=== PATIENT | male | born 1975 | race Asian ===

== ENCOUNTER 2016-11-30 16:55 | Emergency (ER) | payer SELFPAY ==
[~2016-11-30] VITALS: Ht 175.3 cm; Wt 93.0 kg
--- NOTE | 2016-11-30 17:15 | NUR ---
Patient has been seen and evaluated by Jojo HOOKS.
[2016-11-30 17:18] VITALS: BP_SYST 128
[2016-11-30 17:40] LABS: BASOPHILS % (AUTO) 0.4 % (0.0-2.0); EOSINOPHILS # (AUTO) 0.2 K/uL (0.0-0.4); EOSINOPHILS % (AUTO) 2.4 % (0.0-4.0); HEMATOCRIT 52.7 % (36-54); LYMPHOCYTES # (AUTO) 1.6 K/uL (1.0-5.5); LYMPHOCYTES % (AUTO) 22.9 % (20.5-51.5); MEAN CORPUSCULAR HEMOGLOBIN 29 pg (27-31); MEAN CORPUSCULAR HGB CONC 32 % (32-36); MEAN CORPUSCULAR VOLUME 92 fL (79.0-98.0); MONOCYTES # (AUTO) 0.4 K/uL (0.0-1.0); MONOCYTES % (AUTO) 6.1 % (1.7-9.3); NEUTROPHILS % (AUTO) 68.2 % (40.0-70.0); PLATELET COUNT (AUTO) 281 K/uL (130-430); RED BLOOD CELL COUNT(AUTO) 5.76 MIL/uL (4.2-6.2); RED CELL DISTRIBUTION WIDTH 12.8 % (9.0-15.0); WHITE BLOOD COUNT (AUTO) 7.2 K/uL (4.8-10.8)
[2016-11-30 17:57] LABS: ALBUMIN 4.5 g/dL (3.4-4.8); CALCIUM 9.8 mg/dL (8.4-11.0); CREATININE 1.1 mg/dL (0.55-1.30); POTASSIUM 3.8 mmol/L (3.5-5.1); TOTAL BILIRUBIN 1.4 mg/dL (0.0-1.0); TOTAL PROTEIN, SERUM 8.6 g/dL (6.4-8.3); URIC ACID 9.9 mg/dL (2.4-7.0)
[2016-11-30] MEDS ORDERED: KETOROLAC TROMETHAMINE 60 MG/2 ML VIAL IM ONE (18:15)
--- NOTE | 2016-11-30 18:25 | NUR ---
Patient to ER for eval of left foot pain-patient to bed 7
--- NOTE | 2016-11-30 18:35 | NUR ---
Patient to ED for eval of left foot/plantar area pain. Patient reports acute onset, no reported trauma or injury. Patient with difficulty ambulating due to pain, patient has been seen and evaluated by Jojo HOOKS. Family remains at bedside-update/emotional support given, questions answered.
--- NOTE | 2016-11-30 18:45 | NUR ---
Patient given crutches-return demonstration of safe use-questions answered. Patient also given hard cast shoe.
[2016-11-30 19:15] VITALS: BP_SYST 128
--- NOTE | 2016-11-30 19:15 | NUR ---
Patient given written and verbal discharge instructions and verbalizes understanding. ER MD discussed with patient the results and treatment provided. Patient in stable condition. ID arm band removed. Rx of Indocin, Prednisone given. Patient educated on pain management and to follow up with PMD. Pain Scale 3. Opportunity for questions provided and answered.
== END 2016-11-30 19:15 | disposition home or self-care (01) ==
LOC: SED 16:55
DX: M10.072 Idiopathic gout, left ankle and foot (principal); E11.9 Type 2 diabetes mellitus without complications
CPT/HCPCS: 36415; 73630; 80053; 84550; 85025; 96372; 99285; J1885